=== PATIENT | female | born 1960 ===

== ENCOUNTER 2016-10-16 18:58 | Emergency (ER) | payer MEDICARE, MEDICAID ==
[2016-10-16 18:59] VITALS: BMI 27.4
[2016-10-16 19:06] VITALS: BP 136/96; PULSE 97; TEMP 98.4; O2SAT 100
--- NOTE | 2016-10-16 19:41 | C.PDOC ---
History Of Present Illness 56 yo female w/PMHx of depression come in for evaluation of Right knee pain gradually developed since yesterday after sustained injury to Right knee. Pt reports, " trying to get up from bed yesterday and probably put too much pressure onto my Right knee, have heard some crack sound in my Right knee. Since then gradually developed pain over right knee". Pt reports, pain is localized over Right knee, worse with weight bearing. Otherwise, pt denies complete fall, deformity, swelling, sensory or vascular deficits to Right leg. Ambulate to ED for evaluation, not in any apparent distress. Time Seen by Provider: 10/16/16 19:25 Chief Complaint (Nursing): Lower Extremity Problem/Injury History Per: Patient Past Medical History Reviewed: Historical Data, Nursing Documentation, Vital Signs Vital Signs: Last Vital Signs Temp 98.4 F 10/16/16 19:04 Pulse 97 H 10/16/16 19:04 Resp 20 10/16/16 19:04 BP 136/96 H 10/16/16 19:04 Pulse Ox 100 10/16/16 19:44 - Medical History PMH: Anemia, Anxiety, Asthma, Back Problems, Depression, HTN, Hypercholesterolemia, Hypothyroidism, Multiple Sclerosis, Pneumonia Denies: Chronic Kidney Disease Surgical History: Endoscopy - [facility] Procedures ANESTH INJECT SYMP NERVE (12/11/14) ANESTH INJECT-SPIN CANAL (10/02/14) APPLICATION OF SPLINT (12/04/13) INJECT STEROID (12/11/14) INJECT/INFUSE NEC (11/07/14) INJECTION INTO JOINT (12/11/14) LUMBOSAC SPINE X-RAY NEC (10/02/14) SPINAL CANAL INJECT NEC (10/02/14) SYMPATH NERVE INJECT NEC (12/11/14) X-RAY NEC AND NOS (12/11/14) Family History: States: Unknown Family Hx - Social History Hx Tobacco Use: No Hx Alcohol Use: No Hx Substance Use: No - Immunization History Hx Tetanus Toxoid Vaccination: No Hx Influenza Vaccination: No Hx Pneumococcal Vaccination: No Review Of Systems Except As Marked, All Systems Reviewed And Found Negative. Constitutional: Negative for: Fever, Chills Musculoskeletal: Positive for: Other (knee pain, right) Skin: Negative for: Rash Neurological: Negative for: Weakness, Numbness Physical Exam - Physical Exam Appears: Well, Non-toxic, No Acute Distress Skin: Normal Color, Warm, No Rash Extremity: Normal ROM, Tenderness (Right knee tenderness more over posterior aspect. No edema, no erythema, no deformity.), No Calf Tenderness (right), No Deformity, No Swelling Neurological/Psych: Oriented x3, Normal Speech, Normal Motor, Normal Sensation, Normal Reflexes ED Course And Treatment O2 Sat by Pulse Oximetry: 100 Pulse Ox Interpretation: Normal - Other Rad Right knee X-Ray: Interpreted by Me, Viewed By Me Interpretation: no acute fx or disloctaion Progress Note: On re-evaluation, Pt is afebrile, hemodynamicaly stable. Right knee; exam c/w sprain, No deformity, no edema, no erythema. FROM, no neuroavscular deficits. xray review and appears normal. Marshall wrap applied to Right knee. Pt advised on course of ds. ref. to F/u with Ortho in 2-3 days for re-eavl. return if any new changes. Disposition Counseled Patient/Family Regarding: Studies Performed, Diagnosis, Need For Followup - Disposition Referrals: Mc Spivey III, MD [Staff Provider] - Disposition: HOME/ ROUTINE Disposition Time: 20:00 Condition: STABLE Additional Instructions: Marshall wrap to knee for 1 week Ibuprofen for pain Follow up with Orthopedist in 2-3 days for re-evaluation. Return to ED if any worsening or new changes. Prescriptions: Ibuprofen [Motrin Tab] 600 mg PO Q6 #20 tab Instructions: Knee Sprain (ED) - Clinical Impression Clinical Impression: Knee sprain
[2016-10-16 20:17] VITALS: RESP 18
--- NOTE | 2016-10-17 08:19 | RAD ---
Right knee three views History: Pain. Comparison: None available. Findings: Moderate medial and mild patellofemoral compartment joint space narrowing. No evidence of acute displaced fracture or dislocation. No significant suprapatellar joint effusion. Impression: Degenerative changes. If pain persists, consider MRI.
== END 2016-10-16 20:16 | disposition home or self-care (01) ==
LOC: C.ER 18:58
DX: S83.91XA Sprain of unspecified site of right knee, initial encounter (principal); X50.0XXA Overexertion from strenuous movement or load, initial encounter; Y93.89 Activity, other specified; Y92.003 Bedroom of unspecified non-institutional (private) residence as the place of occurrence of the external cause

== ENCOUNTER 2016-12-27 10:35 | Day surgery (SDC) | payer OTHER ==
[2016-12-24 05:22] VITALS: BMI 27.4
[2016-12-27] MEDS ORDERED: MethylPREDNISolone 40 mg Vial IVP ONE (12:08)
[2016-12-27] MEDS ORDERED: Midazolam 2 MG/2 ML VIAL ONE (14:21)
[2016-12-27] MEDS ORDERED: Propofol 10 mg/ml Inj (20 ML) ONE (14:21)
[2016-12-27] MEDS ORDERED: Lactated Ringer's 1,000 ML IV ONE (15:00)
[2016-12-27 16:05] VITALS: TEMP 97.9
[2016-12-27 17:32] VITALS: BP 119/73; PULSE 72; RESP 7; O2SAT 97
== END 2016-12-27 17:45 | disposition short-term general hospital (02) ==
LOC: C.ENDO 10:35
PROVIDERS: ATTEND Internal Medicine
DX: K80.80 Other cholelithiasis without obstruction (principal)
CPT/HCPCS: 43259; J2250; J2704; J2920; J3010; J7120